=== PATIENT | female | born 1985 | race Caucasian/White ===

== ENCOUNTER 2017-12-22 12:31 | Emergency (ER) | payer BC ==
[2017-12-22 12:56] VITALS: BP 146/83
--- NOTE | 2017-12-22 13:15 | EDM.PDOC ---
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 She states she is 9 weeks with twins. She had an ultrasound and HCG quantitative last week. Report was good. Patient has history of complications, miscarriages (multiple) and stillborn. Genetic components have been identified. Onset: Today, Sudden Duration: Constant Location: Reports: Abdomen Quality: Reports: Ache Severity: Moderate Improves with: Reports: None Worsens with: Reports: None Associated Symptoms: Reports: No Other Symptoms - Related Data Allergies Allergy/AdvReac Type Severity Reaction Status Date / Time No Known Allergies Allergy Verified 01/24/16 18:58 Home Meds: Home Meds PNV95/Ferrous Fumarate/FA [ Multivitamins] 1 tab PO DAILY 07/17/14 [ History] Folic Acid [Folic Acid] 1 tab PO DAILY 12/22/17 [History] Past Medical History - Past Health History Medical/Surgical History: Denies Medical/Surgical History HEENT History: Reports: Impaired Vision Gastrointestinal History: Reports: Hemorrhoids Other Gastrointestinal History: ulcers resolved 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: Reports: Endometriosis, , 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 ED EXAM - Physical Exam Exam: See Below Exam Limited By: No Limitations General Appearance: Anxious Eye Exam: Bilateral Eye: Normal Inspection Ears: Normal External Exam, Normal Canal, Hearing Grossly Normal, Normal TMs Nose: Normal Inspection, Normal Mucosa, No Blood Throat/Mouth: Normal Inspection, Normal Lips, Normal Teeth, Normal Gums, Normal Oropharynx, Normal Voice, No Airway Compromise Head: Atraumatic, Normocephalic Neck: Normal Inspection, Supple, Non-Tender, Full Range of Motion Respiratory/Chest: No Respiratory Distress, Lungs Clear, Normal Breath Sounds, No Accessory Muscle Use, Chest Non-Tender Cardiovascular: Normal Peripheral Pulses, Regular Rate, Rhythm, No Edema, No Gallop, No JVD, No Murmur, No Rub GI/Abdominal Exam: Normal Bowel Sounds, Soft, No Abnormal Bruit, No Mass, Distended, Tender Rectal Exam: Deferred (Female) Exam: Normal External Exam, Cervical Dilatation, Tissue Present in Cervix/Vagina (Tissue noted in the dilated os of the cervix, unable to be removed with swab, minimal blood noted.). No: Vaginal Bleeding Heart Tones: Not Buchanan (not assessed) Movement: Not Appreciated Back Exam: Normal Inspection, Full Range of Motion, NT Extremities: Normal Inspection, Normal Range of Motion, Non-Tender, Normal Capillary Refill, No Pedal Edema Neurological: Alert, Oriented, CN II-XII Intact, Normal Cognition, Normal Gait, Normal Reflexes, No Motor/Sensory Deficits Psychiatric: Anxious, Tearful Skin Exam: Warm, Dry, Intact, Normal Color, No Rash Lymphatic: No Adenopathy Course - Vital Signs Last Recorded V/S: Last Vital Signs Temp 98.9 F 12/22/17 12:35 Pulse 123 H 12/22/17 12:35 Resp 18 12/22/17 12:35 BP 146/83 H 12/22/17 12:35 Pulse Ox 98 12/22/17 12:35 - Orders/Labs/Meds Labs: Laboratory Tests 12/22/17 12/22/17 12/22/17 Range/Units 12:42 13:09 13:09 WBC 9.3 (5.0-10.0) 10^3/uL RBC 4.31 (4.2-5.4) 10^6/uL Hgb 12.8 (12.0-16.0) g/dL Hct 37.5 (37.0-47.0) % MCV 87.0 (80-100) fL MCH 29.7 (27.0-34.0) pg MCHC 34.1 (33.0-35.0) g/dL Plt Count 263 (150-450) 10^3/uL Neut % (Auto) 69.2 (42.2-75.2) % Lymph % (Auto) 21.4 (20.5-50.1) % [place] % (Auto) 8.1 H (2-8) % Eos % (Auto) 1.0 (1.0-3.0) % Baso % (Auto) 0.3 (0.0-1.0) % HCG, Quant > 1324 H (0-25) mIU/ml Beta HCG, Quant 924411 mIU/ml Urine Color Yellow (YELLOW) Urine Appearance Clear (CLEAR) Urine pH 7.0 (5.0-9.0) Ur Specific [place] 1.015 (1.005-1.030) Urine Protein Negative (NEGATIVE) Urine Glucose (UA) Negative (NEGATIVE) Urine Ketones Negative (NEGATIVE) Urine Occult Blood Trace-lysed H (NEGATIVE) Urine Nitrite Negative (NEGATIVE) Urine Bilirubin Negative (NEGATIVE) Urine Urobilinogen 0.2 (0.2-1.0) mg/dL Ur Leukocyte Esterase Negative (NEGATIVE) Urine RBC Not seen /HPF Urine WBC 0-5 (0-5/HPF) /HPF Ur Epithelial Cells Rare /HPF Urine Bacteria Not seen (0-FEW/HPF) /HPF Urine Mucus Not seen /LPF Blood Type 12/22/17 Range/Units 13:09 WBC (5.0-10.0) 10^3/uL RBC (4.2-5.4) 10^6/uL Hgb (12.0-16.0) g/dL Hct (37.0-47.0) % MCV (80-100) fL MCH (27.0-34.0) pg MCHC (33.0-35.0) g/dL Plt Count (150-450) 10^3/uL Neut % (Auto) (42.2-75.2) % Lymph % (Auto) (20.5-50.1) % [place] % (Auto) (2-8) % Eos % (Auto) (1.0-3.0) % Baso % (Auto) (0.0-1.0) % HCG, Quant (0-25) mIU/ml Beta HCG, Quant mIU/ml Urine Color (YELLOW) Urine Appearance (CLEAR) Urine pH (5.0-9.0) Ur Specific [place] (1.005-1.030) Urine Protein (NEGATIVE) Urine Glucose (UA) (NEGATIVE) Urine Ketones (NEGATIVE) Urine Occult Blood (NEGATIVE) Urine Nitrite (NEGATIVE) Urine Bilirubin (NEGATIVE) Urine Urobilinogen (0.2-1.0) mg/dL Ur Leukocyte Esterase (NEGATIVE) Urine RBC /HPF Urine WBC (0-5/HPF) /HPF Ur Epithelial Cells /HPF Urine Bacteria (0-FEW/HPF) /HPF Urine Mucus /LPF Blood Type O POSITIVE - Re-Assessments/Exams Free Text/Narrative Re-Assessment/Exam: 12/22/17 17:49 Pt case was discussed with Dr. Goetz. He states that ultrasound would be the best definitive test to know of 2 viable fetus. No ultrasound is available at this facility at this time. He states this is not a stat or urgent test, as there is no procedures that can be done at this time in the . It was explained to the patient that she could be scheduled here at [facility] for 0830 tomorrow, or she could present to the ER in [place]. For peace of mind , the patient states she would like to go to [place] and have the ultrasound done today. Departure - Departure Time of Disposition: 14:02 Disposition: Home, Self-Care 01 Condition: Fair Clinical Impression: Threatened - Discharge Information Instructions: Threatened Miscarriage, [id number] Forms: ED Department Discharge Additional Instructions: Follow up with an Ultrasound Rest No heavy lifting Follow up with Dr. Mcneill
== END 2017-12-22 14:08 | disposition home or self-care (01) ==
LOC: DL.ED 12:31
DX: O20.0 Threatened abortion (principal); Z3A.09 9 weeks gestation of pregnancy
CPT/HCPCS: 36415; 81001; 84702; 85025; 86900; 86901; 99284

== ENCOUNTER 2020-03-15 05:54 | Day surgery (SDC) | payer BC ==
[2020-03-15] MEDS ORDERED: fentaNYL 100 MCG/2 ML SDV IV ONE ×3 (05:55→06:57)
[2020-03-15] MEDS ORDERED: Midazolam 1 MG/ML 2 ML SDV IV ONE ×3 (05:55→06:58)
[2020-03-15] MEDS ORDERED: Dextrose 5%-0.45% NaCl 1,000 ML IV SCH ×2 (06:20→07:00)
[2020-03-15] MEDS ORDERED: Midazolam 1 MG/ML 2 ML SDV ONE (06:30)
[2020-03-15] MEDS ORDERED: fentaNYL 100 MCG/2 ML SDV ONE (06:31)
[2020-03-15] MEDS ORDERED: Sodium Chloride 0.9% 10 ML Syringe FLUSH PRN (06:53)
--- NOTE | 2020-03-15 08:21 | OR ---
DATE: 03/15/2020 PROCEDURE: Esophagogastroduodenoscopy, NBI, and multiple pinch biopsies. INSTRUMENT USED: [id number] Olympus video panendoscope. PREMEDICATIONS: No oral or topical anesthesia used. Fentanyl 100 mcg intravenous, Versed 2 mg intravenous. The procedure was done under pulse oximetry, BP recording, and personnel monitor. INDICATION: The patient with persistent abdominal pain, dyspepsia, and recent diarrhea, unexplained and not responsive to medical measures. Esophagogastroduodenoscopy is performed for detection of any active erosive lesions, Finn esophagus and/or malignancy also under consideration, H. pylori status to be determined, small bowel biopsies to be obtained for celiac disease if indicated, endoscopic hemostasis therapy if needed. PROCEDURE IN DETAIL: The scope was passed with ease. Adequate visualization of the esophagus was made from proximal to distal areas. No upper esophageal lesions identified. No distal esophageal stricture. No uphill or downhill esophageal varices. No Carolyn-Wiess tear. No evidence of erosive esophagitis by Dixon criteria. No esophageal polyp or tumor mass identified. Z-line was seen at around 40 cm distal to the oral verge, configuration consistent with grade 1 by ZAP classification. No proximal gastric varices noted. Gastric fundus examination by retroflexion showed no polypoid lesions. No gastric ulcer, malignant mass, or vascular ectasia identified. Patchy erythema of the antral mucosa was noted, NBI views were obtained. Duodenal bulb showed no ulcer. Visualized second part of the duodenum was unremarkable. Multiple pinch biopsies, 4 in number, were taken from different areas of the second part of the duodenum and tissues were obtained from the duodenal bulb at 9 and 12 o'clock positions and sent for any histopathologic evidence of celiac disease. Multiple pinch biopsies were also taken from the gastric antrum and proximal body and sent for PyloriTek test for H. pylori and histopathology. No bleeding was noted from any of the visualized areas at the completion of the examination. Photographs were taken of the duodenal bulb, gastric antrum, fundus, and distal esophagus. IMPRESSION: Patchy antral gastritis. The patient tolerated the procedure well. [facility] /[id number]
[2020-03-15 09:25] VITALS: BP 111/67; PULSE 66
== END 2020-03-15 09:20 | disposition home or self-care (01) ==
LOC: DL.ENDO 05:54
PROVIDERS: ATTEND Internal Medicine Gastroenterology
DX: K29.50 Unspecified chronic gastritis without bleeding (principal); K29.80 Duodenitis without bleeding; K31.89 Other diseases of stomach and duodenum; F32.9 Major depressive disorder, single episode, unspecified; Z87.19 Personal history of other diseases of the digestive system; Z86.69 Personal history of other diseases of the nervous system and sense organs; Z90.710 Acquired absence of both cervix and uterus
CPT/HCPCS: 43239; 87077; J2250; J3010; J7042

== ENCOUNTER 2021-03-22 11:27 | Emergency (ER) | payer BC ==
[2021-03-22 11:50] VITALS: BP 146/92; PULSE 108
[2021-03-22] MEDS ORDERED: Ketorolac 30 MG/ML SDV IVPUSH ONE ×2 (11:51→12:43)
[2021-03-22] MEDS ORDERED: Sodium Chloride 0.9% 1,000 ML IV ONE (11:51)
[2021-03-22 12:29] LABS: ANION GAP 16.6 mEq/L (7-13); CHLORIDE,CL 102 mmol/L (98-107); SODIUM,NA 140 mmol/L (136-145)
--- NOTE | 2021-03-22 13:34 | EDM.PDOC ---
ED HPI GENERAL MEDICAL PROBLEM - General Chief Complaint: Abdominal Pain Stated Complaint: LOWER RIGHT ABDOMINAL PAIN Time Seen by Provider: 03/22/21 12:05 Source of Information: Reports: Patient History Limitations: Reports: No Limitations - History of Present Illness INITIAL COMMENTS - FREE TEXT/NARRATIVE: This 35 yo female patient reports with right lower quadrant abdominal pain that started this morning. The patient reports she has had similar symptoms in the past. The patient reports she has not had her appendix removed and has had constipation in the past, but no pain this bad. Onset: Today Duration: Hour(s):, Constant Location: Reports: Abdomen (RLQ) Quality: Reports: Ache, Sharp Severity: Severe Improves with: Reports: None Worsens with: Reports: None Context: Reports: Other Associated Symptoms: Reports: No Other Symptoms Right Lower Abdominal Pain Score (Numeric/FACES): 8 - Related Data Allergies Allergy/AdvReac Type Severity Reaction Status Date / Time No Known Allergies Allergy Verified 03/15/20 06:22 Home Meds: Home Meds buPROPion HCL [Bupropion Xl] 300 mg PO DAILY 03/14/20 [History] hydrOXYzine HCL [hydrOXYzine] 25 mg PO TID PRN 03/14/20 [History] Venlafaxine HCl [Venlafaxine ER] 37.5 mg PO ASDIRECTED 03/22/21 [History] Past Medical History - Past Health History Medical/Surgical History: Denies Medical/Surgical History HEENT History: Reports: Impaired Vision Cardiovascular History: Reports: Other (See Below) Other Cardiovascular History: Heart palpatations Gastrointestinal History: Reports: Hemorrhoids, Other (See Below) Other Gastrointestinal History: Upper abdominal pain and intermittent diarrhea. 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 Hx of galactorrhea Musculoskeletal History: Reports: Fibromyalgia Psychiatric History: Reports: Depression Oncologic (Cancer) History: Reports: None Other Dermatologic History: Dermatographia - Infectious Disease History Infectious Disease History: Reports: None - Past Surgical History Head Surgeries/Procedures: Reports: None HEENT Surgical History: Reports: None Cardiovascular Surgical History: Reports: None GI Surgical History: Reports: EGD, Other (See Below) Other GI Surgeries/Procedures: laparoscopic procedure x 2 Female Surgical History: Reports: D&C Musculoskeletal Surgical History: Reports: None Social & Family History - Family History Family Medical History: No Pertinent Family History Musculoskeletal: Reports: Other (See Below) Other Musculoskeletal Family History: Family hx of Duchenne muscular dytrophy Neurological: Reports: Other (See Below) Other Neurological Family History: Family history of anencephaly - Tobacco Use Tobacco Use Status *Q: Unknown Ever Used Tobacco - Caffeine Use Caffeine Use: Reports: Coffee, Soda Caffeine Use Comment: 2 cups daily - Recreational Drug Use Recreational Drug Use: No - Living Situation & Occupation Living situation: Reports: Occupation: Employed ED ROS GENERAL - Review of Systems Review Of Systems: Comprehensive ROS is negative, except as noted in HPI. ED EXAM, GI/ABD - Physical Exam Exam: See Below Exam Limited By: No Limitations General Appearance: Alert, WD/WN, Moderate Distress, Thin Eyes: Bilateral: Normal Appearance, EOMI Ears: Normal External Exam, Normal Canal, Hearing Grossly Normal, Normal TMs Nose: Normal Inspection, Normal Mucosa, No Blood Throat/Mouth: Normal Inspection, Normal Lips, Normal Teeth, Normal Gums, Normal Oropharynx, Normal Voice, No Airway Compromise Head: Atraumatic, Normocephalic Neck: Normal Inspection, Supple, Non-Tender, Full Range of Motion Respiratory/Chest: No Respiratory Distress, Lungs Clear, Normal Breath Sounds, No Accessory Muscle Use, Chest Non-Tender Cardiovascular: Normal Peripheral Pulses, Regular Rate, Rhythm, No Edema, No Gallop, No JVD, No Murmur, No Rub GI/Abdominal Exam: Normal Bowel Sounds, No Organomegaly, No Distention, No Abnormal Bruit, No Mass, Pelvis Stable, Tender (Right lower quadrant and right upper pelvic) (Female) Exam: Deferred Rectal (Female) Exam: Deferred Back Exam: Normal Inspection, Full Range of Motion, NT Extremities: Normal Inspection, Normal Range of Motion, Non-Tender, Normal Capillary Refill, No Pedal Edema Neurological: Alert, Oriented, CN II-XII Intact, Normal Cognition, Normal Gait, Normal Reflexes, No Motor/Sensory Deficits Psychiatric: Normal Affect, Normal Mood Skin Exam: Warm, Dry, Intact, Normal Color, No Rash Lymphatic: No Adenopathy Course - Vital Signs Last Recorded V/S: Last Vital Signs Temp 99.2 F 03/22/21 11:47 Pulse 108 H 03/22/21 11:47 Resp 14 03/22/21 11:47 BP 146/92 H 03/22/21 11:47 Pulse Ox 100 03/22/21 11:47 - Orders/Labs/Meds Orders: Active Orders 24 hr Category Date Time Status Abdomen Pelvis wo Cont [CT] Urgent Exams 03/22/21 12:43 Ordered Labs: Laboratory Tests 03/22/21 03/22/21 03/22/21 Range/Units 11:31 11:31 12:04 WBC 7.5 (5.0-10.0) 10^3/uL RBC 4.76 (4.2-5.4) 10^6/uL Hgb 14.0 (12.0-16.0) g/dL Hct 42.1 (37.0-47.0) % MCV 88.4 (80-100) fL MCH 29.4 (27.0-34.0) pg MCHC 33.3 (33.0-35.0) g/dL Plt Count 273 (150-450) 10^3/uL Neut % (Auto) 71.5 (42.2-75.2) % Lymph % (Auto) 21.1 (20.5-50.1) % Ross % (Auto) 6.6 (2-8) % Eos % (Auto) 0.5 L (1.0-3.0) % Baso % (Auto) 0.3 (0.0-1.0) % Sodium (136-145) mmol/L Potassium (3.5-5.1) mmol/L Chloride (98-107) mmol/L Carbon Dioxide (21-32) mmol/L Anion Gap (7-13) mEq/L BUN (7-18) mg/dL Creatinine (0.55-1.02) mg/dL Est Cr Clr Drug Dosing Estimated GFR (MDRD) BUN/Creatinine Ratio (No establ ref range) Glucose (70-99) mg/dL Lactic Acid (0.4-2.0) mmol/L Calcium (8.5-10.1) mg/dL Total Bilirubin (0.2-1.0) mg/dL AST (15-37) U/L ALT (14-59) U/L Alkaline Phosphatase (46-116) U/L Total Protein (6.4-8.2) g/dL Albumin (3.4-5.0) g/dL Globulin Albumin/Globulin Ratio Urine Color Yellow (YELLOW) Urine Appearance Clear (CLEAR) Urine pH 8.0 (5.0-9.0) Ur Specific [place] 1.020 (1.005-1.030) Urine Protein Negative (NEGATIVE) Urine Glucose (UA) Negative (NEGATIVE) Urine Ketones Negative (NEGATIVE) Urine Occult Blood Trace-intact H (NEGATIVE) Urine Nitrite Negative (NEGATIVE) Urine Bilirubin Negative (NEGATIVE) Urine Urobilinogen 0.2 (0.2-1.0) mg/dL Ur Leukocyte Esterase Negative (NEGATIVE) Urine RBC 0-5 /HPF Urine WBC 0-5 (0-5/HPF) /HPF Ur Epithelial Cells Moderate H (NOT SEEN) /HPF Urine Bacteria Few (0-FEW/HPF) /HPF Urine Other See note Urine HCG, Qual Negative 03/22/21 03/22/21 Range/Units 12:04 12:04 WBC (5.0-10.0) 10^3/uL RBC (4.2-5.4) 10^6/uL Hgb (12.0-16.0) g/dL Hct (37.0-47.0) % MCV (80-100) fL MCH (27.0-34.0) pg MCHC (33.0-35.0) g/dL Plt Count (150-450) 10^3/uL Neut % (Auto) (42.2-75.2) % Lymph % (Auto) (20.5-50.1) % Ross % (Auto) (2-8) % Eos % (Auto) (1.0-3.0) % Baso % (Auto) (0.0-1.0) % Sodium 140 (136-145) mmol/L Potassium 3.6 (3.5-5.1) mmol/L Chloride 102 (98-107) mmol/L Carbon Dioxide 25 (21-32) mmol/L Anion Gap 16.6 H (7-13) mEq/L BUN 12 (7-18) mg/dL Creatinine 0.85 (0.55-1.02) mg/dL Est Cr Clr Drug Dosing TNP Estimated GFR (MDRD) > 60 BUN/Creatinine Ratio 14.1 (No establ ref range) Glucose 93 (70-99) mg/dL Lactic Acid 1.2 (0.4-2.0) mmol/L Calcium 8.7 (8.5-10.1) mg/dL Total Bilirubin 0.4 (0.2-1.0) mg/dL AST 17 (15-37) U/L ALT 32 (14-59) U/L Alkaline Phosphatase 68 (46-116) U/L Total Protein 7.5 (6.4-8.2) g/dL Albumin 3.9 (3.4-5.0) g/dL Globulin 3.6 Albumin/Globulin Ratio 1.1 Urine Color (YELLOW) Urine Appearance (CLEAR) Urine pH (5.0-9.0) Ur Specific [place] (1.005-1.030) Urine Protein (NEGATIVE) Urine Glucose (UA) (NEGATIVE) Urine Ketones (NEGATIVE) Urine Occult Blood (NEGATIVE) Urine Nitrite (NEGATIVE) Urine Bilirubin (NEGATIVE) Urine Urobilinogen (0.2-1.0) mg/dL Ur Leukocyte Esterase (NEGATIVE) Urine RBC /HPF Urine WBC (0-5/HPF) /HPF Ur Epithelial Cells (NOT SEEN) /HPF Urine Bacteria (0-FEW/HPF) /HPF Urine Other Urine HCG, Qual Meds: Medications Discontinued Medications Generic Name Dose Route Start Last Admin Trade Name Freq PRN Reason Stop Dose Admin Sodium Chloride 1,000 mls @ 999 mls/hr 03/22/21 11:51 03/22/21 12:10 Normal Saline IV 03/22/21 12:51 999 mls/hr .BOLUS ONE Administration Ketorolac Tromethamine 30 mg 03/22/21 11:51 Ketorolac 30 Mg/Ml Sdv IVPUSH 03/22/21 11:52 ONETIME ONE Ketorolac Tromethamine 30 mg 03/22/21 12:43 03/22/21 13:14 Ketorolac 30 Mg/Ml Sdv IVPUSH 03/22/21 12:44 30 mg ONETIME ONE Administration - Re-Assessments/Exams Free Text/Narrative Re-Assessment/Exam: 03/22/21 13:55 The patient reports her pain has resolved at this time. Departure - Departure Time of Disposition: 13:55 Disposition: Home, Self-Care 01 Condition: Fair Clinical Impression: Renal calculus, bilateral Abdominal pain Qualifiers: Abdominal location: right lower quadrant Qualified Code(s): R10.31 - Right lower quadrant pain - Discharge Information *PRESCRIPTION DRUG MONITORING PROGRAM REVIEWED*: Not Applicable *COPY OF PRESCRIPTION DRUG MONITORING REPORT IN PATIENT SINTIA: Not Applicable Instructions: Kidney Stones, [id number], Abdominal Pain, Adult, [id number] Forms: ED Department Discharge Care Plan Goals: The patient and her were advised of the examination, lab and CT results during the visit. The patient was given IV fluids and IV Toradol while in the ED. The patient was discharged with a script for Toradol (10 mg) #20 to take 1 by mouth every 6 hours as needed for pain. The patient should increase her oral fluid intake. If the patient has any additional symptoms or concerns, the patient should either return to the emergency department or visit her primary care facility. Sepsis Event Note (ED) - Evaluation Sepsis Screening Result: No Definite Risk - Focused Exam Vital Signs: Vital Signs Temp Pulse Resp BP Pulse Ox 03/22/21 11:47 99.2 F 108 H 14 146/92 H 100 - My Orders Last 24 Hours: My Active Orders 03/22/21 12:43 Abdomen Pelvis wo Cont [CT] Urgent - Assessment/Plan Last 24 Hours: My Active Orders 03/22/21 12:43 Abdomen Pelvis wo Cont [CT] Urgent
--- NOTE | 2021-03-22 14:47 | CT ---
EXAMINATION: Abdomen Pelvis wo Cont SEX: Female AGE: 35 years CLINICAL HISTORY: 35-year-old 113 pound female with right lower quadrant pain and hematuria (hysterectomy). TECHNIQUE: Volume acquisition of data emergency unenhanced renal stone study abdomen and pelvis (kidneys/ureters/bladder) obtained with the patient lying supine on the Siemens multislice scanner [place], [place]. All data archived in the PACS system for storage, reformatting axial/sagittal/coronal planes and study. Interpretation: 1. Punctate calcifications (nephrolithiasis) asymptomatic left kidney. Normal size and configuration left kidney. No cystic or solid left renal mass lesions. No pyelocaliectasis or ureterectasis on the left. 2. Normal reniform size, axis and configuration right kidney. No nephrolithiasis on the right. Suggestion mild caliectasis and extrarenal pelvis on the right. No pyelosinus backflow. No right ureterolith or ureterectasis. Recently "passed" stone? 3. Surgically absent uterus. Multiple tiny cysts symmetrically normal ovaries, bilaterally. 4. No sign of calcified appendicolith, right lower quadrant abscess, inflammatory "dirty" peritoneal fat, mechanical bowel obstruction, ascites or free intraperitoneal air. No foreign bodies. 5. Gallbladder, unenhanced liver, stomach, spleen, pancreas and adrenal glands unremarkable. 6. Normal caliber aortoiliac vessels. Lumbar spine unremarkable. CONCLUSION: Subtle asymmetric prominence calyces right kidney but no calcified urolithiasis on the right. Nonobstructing nephrolithiasis (x2) on the asymptomatic left..
== END 2021-03-22 14:05 | disposition home or self-care (01) ==
LOC: DL.ED 11:27
DX: N20.0 Calculus of kidney (principal)
CPT/HCPCS: 36415; 74176; 80053; 81001; 81025; 83605; 85025; 96374; 99284; J1885; J7030

== ENCOUNTER 2021-04-19 11:07 | Emergency (ER) | payer BC ==
[2021-04-19 11:29] VITALS: BP 136/73; PULSE 66
== END 2021-04-19 12:10 | disposition left against medical advice (07) ==
LOC: DL.ED 11:07
DX: Z53.21 Procedure and treatment not carried out due to patient leaving prior to being seen by health care provider (principal)
CPT/HCPCS: 81003

== ENCOUNTER 2021-11-15 18:50 | Emergency (ER) | payer BC ==
[2021-11-15 22:16] VITALS: BP 127/92; PULSE 96
== END 2021-11-15 23:00 | disposition home or self-care (01) ==
LOC: DL.ED 18:50
DX: M79.604 Pain in right leg (principal); Z95.820 Peripheral vascular angioplasty status with implants and grafts
CPT/HCPCS: 93971; 99283-25

== ENCOUNTER 2022-09-08 10:32 | Emergency (ER) | payer BC ==
[2022-09-08 10:50] VITALS: BP 130/110; PULSE 130
[2022-09-08] MEDS ORDERED: methylPREDNISolone Sodium Succinate 125 MG/2 ML SDV IM ONE (11:10)
[2022-09-08] MEDS ORDERED: Ketorolac 30 MG/ML SDV IM ONE (11:11)
== END 2022-09-08 11:22 | disposition home or self-care (01) ==
LOC: DL.ED 10:32
DX: M54.50 Low back pain, unspecified (principal); Z98.890 Other specified postprocedural states
CPT/HCPCS: 96372; 99283; J1885; J2930

== ENCOUNTER 2022-09-24 09:49 | Emergency (ER) | payer BC ==
[2022-09-24 10:07] VITALS: BP 154/89; PULSE 120
[2022-09-24] MEDS ORDERED: Sodium Chloride 0.9% 10 ML Syringe FLUSH PRN (10:29)
[2022-09-24 11:10] LABS: ANION GAP 13.4 mEq/L (7-13)
== END 2022-09-24 12:25 | disposition home or self-care (01) ==
LOC: DL.ED 09:49
DX: I47.9 Paroxysmal tachycardia, unspecified (principal)
CPT/HCPCS: 36415; 71045; 80053; 81003; 81025; 83735; 84443; 84484; 85025; 85379; 93005; 99284